=== PATIENT | male | born 1995 | race Caucasian/White ===

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

== ENCOUNTER → 2024-01-22 | Outpatient (CLI) | payer BC ==
[2024-01-22 16:30] LABS: BASO # 0.04 K/mm3 (0.02-0.10); EOS # 0.15 K/mm3 (0.04-0.40); HEMATOCRIT 43.9 % (42.0-52.0); HEMOGLOBIN 15.2 g/dL (13.5-18.0); LYMPH# 3.25 K/mm3 (1.50-4.00); MEAN CELL VOLUME 84 fl (78-100); MEAN CORPUSCULAR HEMOGLOBIN 29 pg (27-31); MEAN CORPUSCULAR HGB CONC 35 g/dL (33-37); MEAN PLATELET VOLUME 9.4 fl (7.4-10.4); MONO # 0.73 K/mm3 (0.20-0.80); NEU # 3.29 K/mm3 (1.40-6.50); PLATELET COUNT 264 K/mm3 (130-400); RED CELL DISTRIBUTION WIDTH 12.1 % (11.5-14.5); WHITE BLOOD COUNT 7.5 K/mm3 (4.8-10.8)
[2024-01-22 16:36] LABS: ALBUMIN 4.6 g/dL (3.5-5.0)
[2024-01-22 16:37] LABS: CALCIUM 9.8 mg/dL (8.3-10.5)
[2024-01-22 16:39] LABS: TOTAL PROTEIN 7.6 g/dL (6.4-8.3)
[2024-01-22 16:40] LABS: TOTAL BILIRUBIN 0.7 mg/dL (0.2-1.2)
[2024-01-22 16:45] LABS: MAGNESIUM 2.05 mg/dL (1.60-2.60)
== END ==
LOC: LAB 15:54
PROVIDERS: Internal Medicine
DX: E87.6 Hypokalemia (principal); E78.2 Mixed hyperlipidemia